=== PATIENT | female | born 1950 | race Caucasian/White ===

== ENCOUNTER 2019-01-23 19:09 | Emergency (ER) | payer SELFPAY ==
[~2019-01-23] VITALS: Ht 160 cm; Wt 65.0 kg
[2019-01-23 19:13] VITALS: BP 167/82
== END 2019-01-23 22:49 | disposition left against medical advice (07) ==
LOC: ER 22:03
DX: S50.811A Abrasion of right forearm, initial encounter (principal); X58.XXXA Exposure to other specified factors, initial encounter; Y93.89 Activity, other specified; Y92.89 Other specified places as the place of occurrence of the external cause; Y99.8 Other external cause status; Z53.21 Procedure and treatment not carried out due to patient leaving prior to being seen by health care provider